=== PATIENT | male | born 1980 | race Caucasian/White ===

== ENCOUNTER 2019-05-06 20:14 | Emergency (ER) | payer MEDICAID, OTHER ==
[~2019-05-06] VITALS: Ht 170.2 cm; Wt 81.6 kg
[~2019-05-06 20:14] MED LIST: CYCL10TA7 PO; IBUP800T48 PO; PRED20TA PO
[2019-05-06 20:17] VITALS: BP 142/60; PULSE 54; RESP 16; Ht 170.2 cm; Wt 81.6 kg
[2019-05-06] MEDS ORDERED: predniSONE 20 MG TAB PO ONE (21:00)
[2019-05-06] MEDS ORDERED: IBUPROFEN 800 MG TAB PO ONE (21:00)
--- NOTE | 2019-05-06 21:01 | ERD ---
ER Documentation Chief Complaint Chief Complaint Pt reports a twisting injury to back yesterday HPI 38-year-old male presents to ED complaining of left lower back pain x1 day. He states that he quickly shut a door yesterday and felt his muscle strain since then. He woke up this morning with significant pain that he rates 9 out of 10 intensity and sharp in character. He denies any radiation of the pain. He has been doing IcyHot, Motrin 600 one time, back belt with mild relief of his symptoms. He reports a similar history in the past that resolved on some. He denies any other past medical history. ROS All systems reviewed and are negative except as per history of present illness. Medications Home Meds Active Scripts Prednisone* (Prednisone*) 20 Mg Tab, 60 MG PO DAILY for 4 Days, TAB Prov:JOSELYN FITZGERALD PA-C 05/06/19 Cyclobenzaprine Hcl* (Cyclobenzaprine Hcl*) 10 Mg Tablet, 10 MG PO TID, #20 TAB Prov:JOSELYN FITZGERALD PA-C 05/06/19 Ibuprofen* (Motrin*) 800 Mg Tab, 800 MG PO Q6H PRN for PAIN AND OR ELEVATED TEMP, #30 TAB Prov:JOSELYN FITZGERALD PA-C 05/06/19 Allergies Allergies: Coded Allergies: No Known Allergy (Unverified , 05/06/19) PMhx/Soc Medical and Surgical Hx: pt denies Medical Hx, pt denies Surgical Hx Hx Alcohol Use: No Hx Substance Use: No Hx Tobacco Use: No Smoking Status: Never smoker FmHx Family History: No diabetes Physical Exam Vitals Vital Signs Date Temp Pulse Resp B/P (MAP) Pulse Ox O2 O2 Flow FiO2 Time Delivery Rate 05/06/19 98.3 54 16 142/60 100 20:17 (87) Physical Exam Const: No acute distress Head: Atraumatic Neck: Nontender Resp: Clear to auscultation bilaterally Cardio: Regular rate and rhythm Abd: Soft, non tender, non distended. Back: Tenderness around the left SI joint/lower back Neur: Awake and alert Psych: Normal Mood and Affect Results 24 hrs Current Medications Medications Dose Sig/Melissa Start Time Status Last (Trade) Ordered Route PRN Stop Time Admin Dose Reason Admin Prednisone 60 mg ONCE ONCE 05/06/19 DC 05/06/19 (Prednisone) PO 21:00 21:04 05/06/19 21:01 Ibuprofen 800 mg ONCE ONCE 05/06/19 DC 05/06/19 (Motrin) PO 21:00 21:05 05/06/19 21:01 Procedures/MDM ED COURSE: The patient was stable throughout ED course. I kept the patient informed of laboratory and diagnostic imaging results throughout the ED course. MEDICATIONS GIVEN: Motrin, prednisone Patient tolerated medication well with no adverse reactions. Patient reported improvement in pain. MEDICAL DECISION MAKING: Patient is a 38-year-old male complaining of left lower back pain x1 day. I have low suspicion for AAA, CAUDA EQUINA SYNDROME, CORD COMPRESSION, INFILTRATIVE, INFECTIOUS ETIOLOGY, EPIDURAL ABSCESS, FRACTURE. Based on the patient's history and physical x-ray imaging is not appropriate at this time. Patient was given prednisone Motrin in the ED course which improved his symptoms. Patient is appropriate for outpatient treatment. Patient understood and agreed with the plan. All questions were answered. Patient was given strict return ED precautions if symptoms persist or worsen. Vital signs were reviewed. Patient is afebrile. Patient was not hypoxic. Patient was hemodynamically stable. Patient was told to follow up with primary care for further care and management. PRESCRIPTION: Motrin, prednisone, Flexeril DISCHARGE: At this time, patient is stable for discharge and outpatient management. I have instructed the patient to follow-up with their primary care physician in 1-2 days. I have discussed with the patient the possibility of needing to see a specialist for further workup and imaging studies if symptoms persist. I have instructed the patient to promptly return to the ER for any new or worsening symptoms including increased pain, fever, nausea, vomiting, weakness or LOC. The patient expressed understanding of and agreement with this plan. All questions were answered. Home care instructions were provided. Disclaimer: Inadvertent spelling and grammatical errors are likely due to EHR/dictation software use and do not reflect on the overall quality of patient care. Also, please note that the electronic time recorded on this note does not necessarily reflect the actual time of the patient encounter. Departure Diagnosis: Primary Impression: Back pain Back pain location: low back pain Chronicity: acute Back pain laterality: left Sciatica presence: without sciatica Qualified Codes: M54.5 - Low back pain Condition: Fair Patient Instructions: Back Pain (Acute Or Chronic) Referrals: COMM[facility] CL[facility] YOU HAVE RECEIVED A MEDICAL SCREENING EXAM AND THE RESULTS INDICATE THAT YOU DO NOT HAVE A CONDITION THAT REQUIRES URGENT TREATMENT IN THE EMERGENCY DEPARTMENT. FURTHER EVALUATION AND TREATMENT OF YOUR CONDITION CAN WAIT UNTIL YOU ARE SEEN IN YOUR DOCTORS OFFICE WITHIN THE NEXT 1-2 DAYS. IT IS YOUR RESPONSIBILITY TO MAKE AN APPOINTMENT FOR FOLOW-UP CARE. IF YOU HAVE A PRIMARY DOCTOR --you should call your primary doctor and schedule an appointment IF YOU DO NOT HAVE A PRIMARY DOCTOR YOU CAN CALL OUR PHYSICIAN REFERRAL HOTLINE AT IF YOU CAN NOT AFFORD TO SEE A PHYSICIAN YOU CAN CHOSE FROM THE FOLLOW[facility] [address] [facility]. [facility] [address] [facility] [address] [facility] [facility] [address] [facility] [facility] [address] [facility]. [facility] [address] [facility]. [facility] YOU HAVE RECEIVED A MEDICAL SCREENING EXAM AND THE RESULTS INDICATE THAT YOU DO NOT HAVE A CONDITION THAT REQUIRES URGENT TREATMENT IN THE EMERGENCY DEPARTMENT. FURTHER EVALUATION AND TREATMENT OF YOUR CONDITION CAN WAIT UNTIL YOU ARE SEEN IN YOUR DOCTORS OFFICE WITHIN THE NEXT 1-2 DAYS. IT IS YOUR RESPONSIBILITY TO MAKE AN APPOINTMENT FOR FOLOW-UP CARE. IF YOU HAVE A PRIMARY DOCTOR --you should call your primary doctor and schedule and appointment IF YOU DO NOT HAVE A PRIMARY DOCTOR YOU CAN CALL OUR PHYSICIAN REFERRAL HOTLINE AT . IF YOU CAN NOT AFFORD TO SEE A PHYSICIAN YOU CAN CHOSE FROM THE FOLLOWING [facility] INSTITUTIONS: [facility] [address] [place] [address] [facility] [address] [place] [address] [facility] + [facility] [address] [place] [address] Additional Instructions: Call your primary care doctor TOMORROW for an appointment during the next 1-2 days.See the doctor sooner or return here if your condition worsens before your appointment time. JOSELYN FITZGERALD PA-C May 06, 2019 21:01
== END 2019-05-06 21:43 | disposition home or self-care (01) ==
LOC: FTE 20:14
DX: M54.5 Low back pain (principal)
CPT/HCPCS: J7512; Z7502; Z7610; 99283